=== PATIENT | male | born 1990 | race Caucasian/White ===

== ENCOUNTER → 2017-09-23 | Outpatient (CLI) | payer BC ==
[2017-09-23 09:59] LABS: Influenza A Negative (NEGATIVE); Influenza B Positive (NEGATIVE)
== END ==
LOC: LAB EV 09:11
PROVIDERS: Physician Assistant Medical
DX: J06.9 Acute upper respiratory infection, unspecified (principal)
CPT/HCPCS: 87804

== ENCOUNTER → 2020-04-17 | Outpatient (CLI) | payer BC ==
[2020-04-17 13:17] LABS: BASOPHILS ABSOLUTE AUTO 0.04 K/mm3 (0.00-0.23); BASOPHILS PERCENT AUTO 1 % (0-2); EOSINOPHILS ABSOLUTE AUTO 0.13 K/mm3 (0.00-0.68); EOSINOPHILS PERCENT AUTO 4 % (0-6); Hematocrit 40.5 % (37.0-53.0); Hemoglobin 14.4 g/dL (13.5-17.5); IMMATURE GRAN ABSOLUTE AUTO 0.01 K/mm3 (0.00-0.10); IMMATURE GRAN PERCENT AUTO 0 % (0-1); LYMPHOCYTES ABSOLUTE AUTO 1.29 K/mm3 (0.84-5.20); LYMPHOCYTES PERCENT AUTO 36 % (21-46); MONOCYTES ABSOLUTE AUTO 0.47 K/mm3 (0.16-1.47); MONOCYTES PERCENT AUTO 13 % (4-13); Mean Corpuscular HGB 29.8 pg (26.0-34.0); Mean Corpuscular HGB Conc 35.6 g/dL (31.5-36.5); Mean Corpuscular Volume 84 fL (80-100); Mean Platelet Volume 10.6 fL (9.1-12.4); NEUTROPHILS ABSOLUTE AUTO 1.67 K/mm3 (1.96-9.15); NEUTROPHILS PERCENT AUTO 46 % (41-73); Platelet Count 218 K/mm3 (150-400); RDW Coefficient Variation 12.4 % (11.7-14.2); RDW Standard Deviation 37.4 fL (35.1-46.3); Red Blood Cell Count 4.83 M/mm3 (4.30-5.90); White Blood Cell Count 3.61 K/mm3 (4.00-11.30)
[2020-04-18 09:11] LABS: RPR Non-reactive (Nonreactive)
[2020-04-18 11:02] LABS: Antinuclear Antibody Screen Negative (Negative)
[2020-04-19 07:09] LABS: HBSAG SCREEN Negative (Negative); HEP A AB, IGM Negative (Negative); HEP B CORE AB, IGM Negative (Negative); HEP C VIRUS AB 0.1 (0.0-0.9)
[2020-04-19 08:09] LABS: HIV SCREEN 4TH GENERATION WRFX Non Reactive (Non Reactive)
[2020-04-19 19:09] LABS: ANTI-DSDNA ANTIBODIES 1 IU/mL (0-9)
== END ==
LOC: LAB SHORT 12:39 → LAB EV 12:39
PROVIDERS: Physician Assistant Medical
DX: R23.8 Other skin changes (principal)
CPT/HCPCS: 80074; 85025; 86038; 86225; 86592; 87389; 87529; 87798

== ENCOUNTER 2025-03-30 16:13 | Inpatient (IN) | payer SELFPAY ==
[~2025-03-30] VITALS: Ht 188 cm; Wt 132.7 kg
[2025-03-30 17:04] LABS: BASOPHILS ABSOLUTE AUTO 0.10 K/mm3 (0.00-0.23); BASOPHILS PERCENT AUTO 1 % (0-2); EOSINOPHILS ABSOLUTE AUTO 0.17 K/mm3 (0.00-0.68); EOSINOPHILS PERCENT AUTO 1 % (0-6); Hematocrit 42.7 % (37.0-53.0); Hemoglobin 14.4 g/dL (13.5-17.5); IMMATURE GRAN ABSOLUTE AUTO 0.15 K/mm3 (0.00-0.10); IMMATURE GRAN PERCENT AUTO 1 % (0-1); LYMPHOCYTES ABSOLUTE AUTO 1.32 K/mm3 (0.84-5.20); LYMPHOCYTES PERCENT AUTO 6 % (21-46); MONOCYTES ABSOLUTE AUTO 2.25 K/mm3 (0.16-1.47); MONOCYTES PERCENT AUTO 11 % (4-13); Mean Corpuscular HGB Conc 33.7 g/dL (31.5-36.5); Mean Corpuscular Volume 87 fL (80-100); NEUTROPHILS ABSOLUTE AUTO 17.20 K/mm3 (1.96-9.15); NEUTROPHILS PERCENT AUTO 81 % (41-73); NRBC ABSOLUTE 0.00 K/mm3 (0.00-0.02); NRBC Auto 0.0 /100 WBC (0.0-0.2); Platelet Count 315 K/mm3 (150-400); RDW Coefficient Variation 12.4 % (11.7-14.2); RDW Standard Deviation 39.6 fL (35.1-46.3)
[2025-03-30 17:28] LABS: Alanine Aminotransfer (ALT/SGP 150.0 U/L (12-78); Albumin, Blood 3.0 g/dL (3.4-5.0); Albumin/Globulin Ratio 0.7 (0.8-1.8); Anion Gap 2.0 mmol/L (3-11); Aspartate Aminotrans (AST/SGOT 60.0 U/L (12-37); Bilirubin, Total 1.2 mg/dL (0.1-1.0); Blood Urea Nitrogen 9.0 mg/dL (8-24); CO2, Blood 26.0 mmol/L (21-32); Calcium, Blood 9.2 mg/dL (8.5-10.1); Chloride, Blood 106.0 mmol/L (98-108); Creatinine, Blood 0.71 mg/dL (0.60-1.20); Globulin, Blood 4.5 g/dL (2.2-4.0); Glucose, Blood 117.0 mg/dL (70-99); Potassium, Blood 3.7 mmol/L (3.5-5.5); Sodium, Blood 130.0 mmol/L (136-145); Total Protein, Blood 7.5 g/dL (6.4-8.2)
[2025-03-30] MEDS ORDERED: Clindamycin 900mg in D5W 50ML 50 ML IV ONE (18:10)
[2025-03-30] MEDS ORDERED: Vancomycin (Pharmacy Consult) IV PRN (18:15)
[2025-03-30] MEDS ORDERED: Piperacillin/Tazobactam Sod 3.375 GM in NS 100 ML IV ONE (18:15)
[2025-03-30] MEDS ORDERED: HYDROmorphone HCl/Pf 1MG SYR IV ONE (18:35)
[2025-03-30] MEDS ORDERED: Ondansetron HCl 2 MG / ML 2ML Vial IV ONE (18:35)
[2025-03-30] MEDS ORDERED: NS 1,000 ML IV SCH (18:35)
[2025-03-30] MEDS ORDERED: Vancomycin (Pharmacy Consult) IV SCH (20:00)
[2025-03-30] MEDS ORDERED: Ondansetron HCl 2 MG / ML 2ML Vial IV PRN ×2 (20:00→23:40)
[2025-03-30] MEDS ORDERED: HYDROmorphone HCl/Pf 1MG SYR IV PRN ×3 (20:00→23:45)
[2025-03-30] MEDS ORDERED: Lactobacil 2-S.Thermo-Bifido 1 1 Cap PO SCH (21:00)
[2025-03-30] MEDS ORDERED: Midazolam HCl 1MG / ML 2ML Vial ONE (22:45)
[2025-03-30] MEDS ORDERED: FentaNYL Citrate 50 MCG/ML 2 ML Injection ONE (22:45)
[2025-03-30] MEDS ORDERED: SuccINYLCHOLINE Chloride 100 MG/5 ML 5MLSYR ONE (22:57)
[2025-03-30] MEDS ORDERED: Rocuronium Bromide 10 MG/ML 5ML Injection IV ONE (22:57)
[2025-03-30] MEDS ORDERED: Sugammadex Sodium 200 MG/2ML SDV (100 MG/ML) ONE (23:28)
[2025-03-30] MEDS ORDERED: HYDROcodone 5-APAP 325 TAB PO PRN (23:30)
[2025-03-30] MEDS ORDERED: Ketorolac Tromethamine 30mg Vial ONE (23:36)
[2025-03-30 23:40] VITALS: BP 111/57
[2025-03-30] MEDS ORDERED: FentaNYL Citrate 50 MCG/ML 2 ML Injection IV PRN ×2 (23:40)
[2025-03-30] MEDS ORDERED: HydrALAZINE HCl 20 MG / ML 1ML Vial IV PRN (23:40)
[2025-03-30 23:45] VITALS: BP 107/56
[2025-03-30 23:50] VITALS: BP 113/56
[2025-03-30 23:55] VITALS: BP 113/66
[2025-03-31] VITALS (9 sets, daily range): BP systolic 112–1096; BP diastolic 56–79
[2025-03-31] MEDS ORDERED: Piperacillin/Tazobactam Sod 3.375 GM in NS 100 ML IV SCH (02:00)
[2025-03-31] MEDS ORDERED: NS 250 ML IV PRN (02:05)
[2025-03-31] MEDS ORDERED: Clindamycin 900mg in D5W 50ML 50 ML IV SCH (03:00)
[2025-03-31 04:45] LABS: Hematocrit 37.2 % (37.0-53.0); Hemoglobin 12.4 g/dL (13.5-17.5); Mean Corpuscular HGB Conc 33.3 g/dL (31.5-36.5); Mean Corpuscular Volume 87 fL (80-100); NRBC ABSOLUTE 0.00 K/mm3 (0.00-0.02); NRBC Auto 0.0 /100 WBC (0.0-0.2); Platelet Count 278 K/mm3 (150-400); RDW Coefficient Variation 12.5 % (11.7-14.2); RDW Standard Deviation 40.0 fL (35.1-46.3)
[2025-03-31 05:12] LABS: Alanine Aminotransfer (ALT/SGP 111.0 U/L (12-78); Albumin, Blood 2.4 g/dL (3.4-5.0); Albumin/Globulin Ratio 0.6 (0.8-1.8); Anion Gap 7.0 mmol/L (3-11); Aspartate Aminotrans (AST/SGOT 32.0 U/L (12-37); Bilirubin, Total 1.1 mg/dL (0.1-1.0); Blood Urea Nitrogen 8.0 mg/dL (8-24); CO2, Blood 25.0 mmol/L (21-32); Calcium, Blood 8.6 mg/dL (8.5-10.1); Chloride, Blood 108.0 mmol/L (98-108); Creatinine, Blood 0.74 mg/dL (0.60-1.20); Globulin, Blood 4.2 g/dL (2.2-4.0); Glucose, Blood 123.0 mg/dL (70-99); Magnesium, Blood 2.1 mg/dL (1.6-2.4); Potassium, Blood 4.0 mmol/L (3.5-5.5); Sodium, Blood 136.0 mmol/L (136-145); Total Protein, Blood 6.6 g/dL (6.4-8.2)
--- NOTE | 2025-03-31 06:09 | NUR ---
SHIFT SUMMARY: PT ARRIVES TO PCU 15 FROM PACU VIA GURNEY AROUND 0033. PT SLID HIMSELF TO THE HOSPITAL BED. BEDSIDE SHIFT REPORT COMPLETED ALONG WITH DRESSING CHECK WITH [employer]. DRESSING TO LEFT INGUINAL SITE WITH ABD PAD AND TAPE. LOOKS SATURATED, BUT INTACT. PT ORIENTED TO ROOM AND CALL LIGHT. PT A&OX4, PLEASANT AND COOPERATIVE WITH CARE. VSS ON RA. SR 70'S-80'S. PT DOES HAVE A ANKUR DRAIN UNDER DRESSING. C/O PAIN 5/10, TO INCISION SITE, MEDICATED WITH PRN 5MG PO NORCO. PT TOLERATING A REGULAR DIET. SBA FOR LINE MANAGEMENT. PT VOIDING CLEAR, CONCENTRATED URINE IN URINAL. NO BM THIS SHIFT. BED IN LOWEST POSITION, CALL LIGHT WITHIN REACH. CALLS APPROPRIATELY AND IS ABLE TO ADVOCATE NEEDS EFFECTIVELY.
--- NOTE | 2025-03-31 11:02 | NUR ---
MORNING SUMMARY THE PT IS A&OX4, IND IN THE ROOM, EXCELLENTE PO INTAKE (FLUIDS D/C'D). HE REMAINS ON RA W/ SP02 >93%. ON TELE HE IS SR0'S-70'S. BP STABLE. HE C/O 3/10 PAIN IN LEFT GROIN D/T POD 1 I&D W/ ANKUR DRAIN. PT DID NOT WANT NARCOTICS FOR PAIN, AND REQUESTED TYLNEOL. PAIN IMPROVED WITH JUST TYLENOL. DR. VAZQUEZ SAW THE PT THIS MORNING AND ASSESSED THE LEFT INGUINAL ABSCESS AND ANKUR DRAIN. WOUND CARE ORDERS PLACED. THE PT TOOK A SHOWER AND CLEANED THE SITE PER DR. VAZQUEZ. GAUZE CHANGED AROUND THE SITE, AND THE PT IS WEARING MESH UNDERWEAR TO HOLD GAUZE IN PLACE. DR. VAZQUEZ WANTS TO REEVALUATE THE PT THIS AFTERNOON FOR POSSIBLE DISCHARGE TODAY. DR. SEO ROUNDED ON THE PT AND AWARE OF DR. LONG PLAN. PLAN FOR THE PT TO SEE DR. VAZQUEZ OUTPT Saturday04/08/25 FOR F/U. SEE NOTES FOR UPDATES.
--- NOTE | 2025-03-31 15:05 | NUR ---
SEE PREVIOUS NOTE THIS RN CALLED DR. VAZQUEZ TO UPDATE HIM ON PT'S CONDITION, PAIN CONTROLLED W/ TYLENOL, GAUZE AROUND ANKUR DRAIN NEEDING TO BE CHANGED THREE TIME SO FAR THIS SHIFT, AND THE PT IS IND/AMBULATORY. DR. VAZQUEZ CLEARED THE PT FOR DISCHARGE AND DR. SEO WAS MADE AWARE. PLAN FOR DISCHARGE TODAY AND THE PT WILL FOLLOW UP WITH WITH DR. VAZQUEZ NEXT WEEK IN OFFICE. T'S PREFERED PHARMACY IS [facility]. SEE NOTES FOR UPDATES.
[2025-03-31] MEDS ORDERED: Doxycycline Hy100 M3 PO (15:40)
--- NOTE | 2025-03-31 16:22 | NUR ---
PT DISHARGED AT 1615. ALL BELONGINGS AND DRESSING CHANGING SUPPLIES SENT WITH THE PT. PT'S MEDICATIONS WERE SENT TO [facility]. DRESSING CHANGED FOR PERCAUTIONS AGAIN RIGHT BEFORE DISCHARGING. IV'S WERE REMOVED BY JEANNE MYERS. NO FURTHER NOTES.
== END 2025-03-31 16:25 | disposition home or self-care (01) | DRG 872 ==
LOC: ER 16:13 → PCU 19:57 → ERHOLD 19:57 → PCU 03-31 00:20
PROVIDERS: Nurse Practitioner Acute Care; Physician Assistant; Surgery; ADMIT Student in an Organized Health Care Education/Training Program
PROC: 3E03329 Introduction of Other Anti-infective into Peripheral Vein, Percutaneous Approach (ICD-10-PCS; 2025-03-30)
PROC: 0H9AXZZ Drainage of Inguinal Skin, External Approach (ICD-10-PCS; principal; 2025-03-30 16:30)
DX: A41.9 Sepsis, unspecified organism (principal); L02.214 Cutaneous abscess of groin; L03.116 Cellulitis of left lower limb; L03.314 Cellulitis of groin; E87.1 Hypo-osmolality and hyponatremia; E86.1 Hypovolemia; R74.01 Elevation of levels of liver transaminase levels; N48.22 Cellulitis of corpus cavernosum and penis; Z86.19 Personal history of other infectious and parasitic diseases; Z88.1 Allergy status to other antibiotic agents
CPT/HCPCS: 36415; 72193; 76705; 80053; 83605; 83735; 85025; 85027; 86140; 87040; 87070; 87075; 87147; 87205; 96365-59; 96375; 99284-25; A9270; J0330; J1171; J1885; J2250; J2405; J2543; J2704; J3010; J3373; J7030; J7040; J7050; J7120; Q9967